=== PATIENT | male | born 1955 | race Caucasian/White ===

== ENCOUNTER 2024-04-07 12:21 | Day surgery (SDC) | payer MEDICARE, SELFPAY ==
[2024-04-07 12:39] VITALS: BMI 25.8
[2024-04-07 12:49] VITALS: BP 146/69; PULSE 63; RESP 16; TEMP 36.7; O2SAT 98
[2024-04-07] MEDS: Lactated Ringers 1,000 ML 100 ML IVCONT (12:50)
--- NOTE | 2024-04-07 13:55 | P.CONAN_ITS ---
Documented by User: Akanksha Mirza NP 04/04/24 09:26 HPI - Anesthesia Eval Consult details Narrative: 69yo M for Colonoscopy [facility] Past Medical History Medical History Seasonal allergies Broken leg HTN (hypertension) High cholesterol Tubular adenoma Surgical History Surgical History Hx of inguinal hernia surgery H/O colonoscopy Social History Social History Patient Tobacco Use Status: Never used Tobacco Use of substances other than those prescribed or required for medical reasons: No Are you DNR?: No Advance Directives: No Advance Directives Information Provided: Yes Meds Allergies Allergy/AdvReac Type Severity Reaction Status Date / Time No Known Allergies Allergy Verified 04/07/24 12:52 Home Medications ?Medication ?Instructions ?Recorded ?Confirmed ?Last Taken ?Type atorvastatin 20 mg tablet 20 mg PO DAILY 04/04/24 04/07/24 04/05/24 History lisinopril 5 mg tablet 5 mg PO DAILY 04/04/24 04/07/24 04/06/24 History valacyclovir 500 mg tablet 500 mg PO DAILY 04/04/24 04/07/24 04/06/24 History zolpidem 5 mg tablet 5 mg PO BEDTIME PRN insomnia 04/04/24 04/04/24 Unknown History Assessment and Plan Assessment Anesthesia Assessment: Chart Reviewed Documented by User: Rosemary Guy DO 04/07/24 14:04 [facility] Past Medical History Medical History Seasonal allergies Broken leg HTN (hypertension) High cholesterol Tubular adenoma Family History Family history of problems with anesthesia: No Surgical History Surgical History Hx of inguinal hernia surgery H/O colonoscopy History of Problems with Anesthesia: No Social History Social History Patient Tobacco Use Status: Never used Tobacco Use of substances other than those prescribed or required for medical reasons: No Are you DNR?: No Advance Directives: No Advance Directives Information Provided: Yes Meds Allergies Allergy/AdvReac Type Severity Reaction Status Date / Time No Known Allergies Allergy Verified 04/07/24 12:52 Home Medications ?Medication ?Instructions ?Recorded ?Confirmed ?Last Taken ?Type atorvastatin 20 mg tablet 20 mg PO DAILY 04/04/24 04/07/24 04/05/24 History lisinopril 5 mg tablet 5 mg PO DAILY 04/04/24 04/07/24 04/06/24 History valacyclovir 500 mg tablet 500 mg PO DAILY 04/04/24 04/07/24 04/06/24 History zolpidem 5 mg tablet 5 mg PO BEDTIME PRN insomnia 04/04/24 04/04/24 Unknown History Exam Exam Date and Time: April 07, 2024 1352 Height,Weight and Vital Signs: Height 5 ft 6 in Weight 72.575 kg Vital Signs Temperature 98.1 F 04/07/24 12:49 Pulse Rate 63 04/07/24 12:49 Respiratory Rate 16 04/07/24 12:49 Blood Pressure 146/69 H 04/07/24 12:49 Pulse Oximetry 98 04/07/24 12:49 Oxygen Delivery Method Room Air 04/07/24 12:49 Temperature 98.1 F 04/07/24 12:49 Pulse Rate 63 04/07/24 12:49 Respiratory Rate 16 04/07/24 12:49 Blood Pressure 146/69 H 04/07/24 12:49 Pulse Oximetry 98 04/07/24 12:49 Oxygen Delivery Method Room Air 04/07/24 12:49 Airway Mallampati Class: I TM Dist: >3cm Neck ROM: Full Loose/Missing/Broken Teeth: No (patient denies any loose or broken teeth) Heart: S1S2 Lungs: CTAB Assessment and Plan Assessment Anesthesia Assessment: Anesthesia Plan Discussed and Chart Reviewed Final Anesthetic Review Family History of Problems with Anesthesia: No History of Problems with Anesthesia: No NPO: Yes ASA Class: II Final Preanesthetic Review: No Changes in Pt Med Stat, Meds/Allgs Chart Reviewed, Consent Obtained/Reviewed and Anes Risks/Benef Reviewed Patient Risk: Low Procedure Risk: Low Anesthetic Plan Anesthetic Plan: MAC: and Agree w/ Assess. and Plan Disposition: Standard PACU
--- NOTE | 2024-04-07 15:30 | PM.OP ---
Brief Operative Note Date of Service: 04/07/24 Pre-op diagnosis: Screening Post-op diagnosis: other (Diverticulosis) Procedure: Colonoscopy to the cecum and TI Surgeon: Gelacio Avalos MD Anesthesia: MAC Was an Instrument Maintenance Supervisor used for this Procedure?: No Estimated blood loss (mL): 0 Pathology: none sent Condition: stable Disposition: PACU
[2024-04-07 15:31] VITALS: BP 95/63; PULSE 71; RESP 17; TEMP 36.1; O2SAT 95
[2024-04-07 15:46] VITALS: BP 125/76; PULSE 61; RESP 18; TEMP 36.1; O2SAT 99
--- NOTE | 2024-04-08 03:04 | OP_ITS ---
DATE OF SERVICE: 04/07/2024 SURGEON: Gelacio Avalos MD INDICATIONS: The patient presents for evaluation of colorectal cancer screening, personal history of tubular adenoma of the colon, and family history of colon cancer. Full consent has been obtained from him for this, including risks of bleeding and perforation. PREOPERATIVE DIAGNOSIS: POSTOPERATIVE DIAGNOSIS: PROCEDURE PERFORMED: Colonoscopy to cecum and terminal ileum. ESTIMATED BLOOD LOSS: COMPLICATIONS: ANESTHESIA: Monitored anesthesia care. ASSISTANTS: SPECIMENS: PREOPERATIVE DIAGNOSES: Colorectal cancer screening, personal history of tubular adenoma of the colon, family history of colon cancer. POSTOPERATIVE DIAGNOSES: Colorectal cancer screening, personal history of tubular adenoma of the colon, family history of colon cancer, diverticulosis and internal hemorrhoids. DESCRIPTION OF PROCEDURE: The patient was placed in the left lateral decubitus position. The digital rectal exam revealed no abnormalities. The Olympus video pediatric colonoscope was entered into the rectum and advanced easily to the cecum. Once in the cecum, I did identify normal-appearing cecal pouch with appendiceal orifice and a normal-appearing ileocecal valve. The terminal ileum was cannulated and appeared normal. Scope was withdrawn back in the colon. The entire cecum and ileocecal valve appeared normal. The scope was slowly withdrawn assessing all mucosal surfaces carefully. Preparation was excellent. I did not visualize any sign of polyps, colitis, nor angiodysplasia. There was a mild amount of sigmoid diverticulosis. In the rectum, scope was retroflexed visualizing small internal hemorrhoids, but no other pathology. The rectal mucosa appeared normal. The scope was straightened and withdrawn from the patient. He tolerated the procedure well and was returned to the recovery area in stable condition. IMPRESSION: 1. Diverticulosis. 2. Internal hemorrhoids. PLAN: Given his previous history and family history, I would recommend a followup coloscopy in 5 years for further screening. He will otherwise see me on a p.r.n. basis. Gelacio Avalos MD [facility] / [id number]
== END 2024-04-07 16:08 | disposition home or self-care (01) ==
PROVIDERS: PCP Internal Medicine; Visit Provider Internal Medicine
PROC: 0DJD8ZZ Inspection of Lower Intestinal Tract, Via Natural or Artificial Opening Endoscopic (ICD-10-PCS; CPT 45378; principal; 2024-04-07 13:40)
DX: Z12.11 Encounter for screening for malignant neoplasm of colon (principal); K57.30 Diverticulosis of large intestine without perforation or abscess without bleeding; K64.8 Other hemorrhoids; Z86.010 Personal history of colon polyps; Z80.0 Family history of malignant neoplasm of digestive organs; E78.5 Hyperlipidemia, unspecified; I10 Essential (primary) hypertension; Z79.02 Long term (current) use of antithrombotics/antiplatelets; Z79.899 Other long term (current) drug therapy
CPT/HCPCS: G0105; J1596; J2704